=== PATIENT | male | born 1940 | race Caucasian/White ===

== ENCOUNTER 2023-04-25 17:29 | Emergency (ER) | payer MEDICARE, SELFPAY ==
[2023-04-25] VITALS (14 sets, daily range): BP systolic 128–166; BP diastolic 74–100; PULSE 98–122; RESP 12–19; TEMP 36.8; O2SAT 96–99
--- NOTE | 2023-04-25 17:30 | RT.EKG_ITS ---
APPROVED REPORT Exam: Resting ECG Reason for Exam: dizziness Patient Location: E HR:107 bpm ECG Measurements Heart Rate 107 AXIS DC 177 P 72 QRSd 83 QRS -6 QT 353 T 40 QTc 472 Conclusion Sinus tachycardia...rate> 99 Physician: no stemi
--- NOTE | 2023-04-25 17:45 | DI.CT_ITS ---
Exam(s) CT HEAD WO EXAM: CT HEAD WO CLINICAL HISTORY: dizzy, eval for stroke. TECHNIQUE: Imaging Protocol: Axial computed tomography images with coronal and sagittal reformatted images were created and reviewed COMPARISON: No exams were available for comparison FINDINGS: Ventricles and Extra axial spaces: Normal in size and morphology for the patient's age. Hemorrhage: None. Cerebral parenchyma: No evidence of acute infarct or mass. Mild atrophy consistent with the patient' s age. Minimal white matter changes small vessel disease. Midline shift: None. Brainstem/Cerebellum: Normal. Calvarium: Normal. Visualized Paranasal sinuses/Mastoids: Clear. Soft Tissues: Unremarkable. IMPRESSION: No acute intracranial process. RADIATION DOSE DELIVERED: 744.29mGy.cm Total DLP DATA REPOSITORY: All CT scans at this facility are submitted to the National Radiology Data Registry (NRDR) Dose Index Registry (DIR) with the [employer] ([employer]). RADIATION OPTIMIZATION: All CT scans at this facility use at least one of these dose optimization te chniques: automated exposure control; mA and/or kV adjustment per patient size (includes targeted exa ms where dose is matched to clinical indication); or iterative reconstruction.
[2023-04-25] MEDS: Meclizine 25 MG TAB PO (17:56)
--- NOTE | 2023-04-25 18:11 | ED.GENADUL_ITS ---
Discharge Plan Disposition Patient Disposition: Home Condition: Good Discharge Details Clinical Impression: Vertigo, peripheral Primary Care Provider: Cathi,Local ED Provider: Cristino Jean Home Meds and New Rx's Prescriptions: New meclizine 25 mg tablet 25 mg PO TID Qty: 30 0RF No Action fluvastatin [Lescol] 20 MG capsule 1 tab PO HS Patient Comments: not taking per pt cephalexin [Keflex] 500 MG capsule 500 mg PO TID Qty: 21 0RF Patient Comments: not taking per pt methylprednisolone 4 MG tablets,dose pack 4 mg PO DIRECTED Qty: 1 0RF Patient Comments: not taking per pt pravastatin 80 mg Tablet 80 mg DAILY Discharge Instructions Instructions: Vertigo (ED) Additional Instructions: At this time your workup shows no significant abnormalities. Your symptoms appear consistent with what is called peripheral vertigo. Please drink plenty fluids and stay well-hydrated. Please take the meclizine as directed to help with the dizziness. This prescription has been sent to your pharmacy. If you notice any worsening of your symptoms, or any new symptoms such as vomiting, diarrhea, fever, chills, shortness of breath, chest pain, numbness, weakness, or fainting , please return immediately to the emergency department for reevaluation. Please follow up with your primary care provider as soon as possible for reassessment and reevaluation. As always, it was a pleasure participating in your medical care today. Medical Decision Making 83-year-old male with a past medical history of high cholesterol and no other significant medical problems per report, presents today for evaluation of dizziness. Patient states that 2 to 3 days ago he gradually began getting dizzy. It was gradual in onset. He has chronic tinnitus and this is unchanged. Dizziness is described as a room spinning sensation from left to right. Made worse when he moves his head. Improved by closing his eyes and lying still. He denies any headache or vision changes. He denies any chest pain or shortness of breath. He denies any numbness tingling or weakness. He denies having had the symptoms before. He did drink a fair bit of water today and he states that this did help the symptoms improved. No other complaints at this time. No other modifying factors. Exam demonstrates dry mucous membranes, horizontal fatigable nystagmus. No vertical or rotatory nystagmus. Negative test of skew. Concern for peripheral vertigo however differential includes less likely cerebellar component. Will get a CT scan to rule out large stroke, rehydrate, give meclizine, monitor closely and reassess. EKG shows no evidence of STEMI or dysrhythmia. 7:23 PM Laboratory workup has returned normal, no white count bandemia or left shift. BUN is slightly high at 20, mucous membranes are dry, symptoms appear concerning and consistent with mild dehydration, as well as peripheral vertigo. CT scan negative for evidence of stroke. Symptoms appear clinically inconsistent at this time with cerebellar stroke. No ataxia or wide-based gait. Patient does have improvement of symptoms after fluid and meclizine. Patient will be discharged home with continue meclizine, recommendations for continued hydration, close follow-up. Prescription has been sent to the patient's pharmacy. No indication for ENT referral at this time. I did discuss with the patient that if he did not have improvement of symptoms over the next 3 for 5 days, then further ENT follow-up would be reasonable and indicated. I have extensively reviewed the treatment plan and discharge instructions with the patient and their family. I have addressed all patient concerns at this time. The patient and family was made aware of what symptoms to monitor for that would warrant a return to the emergency department. Discussed the plan with the patient and family, they demonstrate verbal understanding and agreement with our assessment and plan at this time. The documentation in this chart was dictated using [employer] dictation software. Please excuse any dictation errors. FINDINGS: Ventricles and Extra axial spaces: Normal in size and morphology for the patient's age. Hemorrhage: None. Cerebral parenchyma: No evidence of acute infarct or mass. Mild atrophy consistent with the patient's age. Minimal white matter changes small vessel disease. Midline shift: None. Brainstem/Cerebellum: Normal. Calvarium: Normal. Visualized Paranasal sinuses/Mastoids: Clear. Soft Tissues: Unremarkable. IMPRESSION: No acute intracranial process. HPI General Date/Time Provider Initiated Documentation: 04/25/23 17:37 . HPI Narrative: 83-year-old male with a past medical history of high cholesterol and no other significant medical problems per report, presents today for evaluation of dizziness. Patient states that 2 to 3 days ago he gradually began getting dizzy. It was gradual in onset. He has chronic tinnitus and this is unchanged. Dizziness is described as a room spinning sensation from left to right. Made worse when he moves his head. Improved by closing his eyes and lying still. He denies any headache or vision changes. He denies any chest pain or shortness of breath. He denies any numbness tingling or weakness. He denies having had the symptoms before. He did drink a fair bit of water today and he states that this did help the symptoms improved. No other complaints at this time. No other modifying factors. Related Data Home Medications Medication Instructions Recorded Confirmed cephalexin 500 mg capsule (Keflex) 500 mg PO TID ##21 05/18/16 fluvastatin 20 mg capsule (Lescol) 1 tab PO HS 05/18/16 05/18/16 methylprednisolone 4 mg tablets in 4 mg PO DIRECTED #1 packet 05/18/16 a dose pack meclizine 25 mg tablet 25 mg PO TID #30 tabs 04/25/23 pravastatin 80 mg tablet 80 mg DAILY 04/25/23 04/25/23 Previous Rx's Medication Instructions Recorded cephalexin 500 mg capsule (Keflex) 500 mg PO TID ##21 05/18/16 methylprednisolone 4 mg tablets in 4 mg PO DIRECTED #1 packet 05/18/16 a dose pack meclizine 25 mg tablet 25 mg PO TID #30 tabs 04/25/23 Allergies Allergy/AdvReac Type Severity Reaction Status Date / Time No Known Allergies Allergy Unverified 04/25/23 17:37 General Stated Complaint: Dizzy/Sync ALLYSON: 3 Review of Systems All systems reviewed & are unremarkable except as noted in HPI and below PFSH All Active Problems (Updated 04/25/23 @ 19:06 by Cristino Jean DO) Vertigo, peripheral (Acute) Social History Smoking/Tobacco Use Status: Former Tobacco Use Smoking risk assessment performed?: Yes Alcohol Intake: current Alcohol Intake frequency: holidays/special occasions only Alcohol type: beer Drug use: Never Housing: house Do you feel safe at home: Yes Do you feel safe in your relationship?: Yes Additional Social history: lives in [place] but stay in a camper when in [place] Exam Narrative Exam Narrative: 1.Const: Well-nourished, Well-developed, appearing stated age 2.Eyes: PERRL, no conjunctival injection, and symmetrical lids. Horizontal bidirectional fatigable nystagmus is noted. No rotatory or vertical nystagmus. 3.ENT: Atraumatic external nose and ears. Dry MM. Neck: Symmetric, trachea midline, No thyromegaly. 4.CVS: +S1/S2, No murmurs or gallops. Peripheral pulses 2+ and equal in all extremities. Brisk capillary refill in all extremities. 5.RESP: Unlabored respiratory effort. Clear to auscultation bilaterally. No wheezes rales or rhonchi 6.GI: Soft, Nontender/Nondistended, No hepatosplenomegaly. No guarding or rebound. 7.MSK: Normocephalic/Atraumatic, Extremities w/o deformity or ttp No cyanosis or clubbing, Normal movement of all extremities 8.Skin: Warm, Dry. No rashes or lesions. 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 Sensation grossly intact, no focal neurologic deficits. All 6 cardinal planes of vision are fully intact. No evidence of rotatory or vertical nystagmus. The patient demonstrated a normal [id number]-nvhm-[id number], good dexterity. There was no evidence of dysdiadochokinesia. Patient was able to ambulate without difficulty. There was no wide-based gait. Romberg testing was normal. Lxal-oc-nmbr testing was normal. Sensation was i ntact bilaterally as well as muscle strength bilaterally for all extremities. Patient was able to verbalize butter cup with no slurring, or miss pronunciation. Head impulse test only slightly worsens the symptoms. Test of skew negative 10.Psych: (AAO) x3. Appropriate mood and affect Course Vital Signs Vital signs: Vital Signs Temperature 36.8 C 04/25/23 17:36 Pulse 122 H 04/25/23 17:36 Respiratory Rate 18 04/25/23 17:36 Blood Pressure 128/86 04/25/23 17:36 Pulse Oximetry 99 04/25/23 17:36 Temperature 36.8 C 04/25/23 17:36 Pulse 104 H 04/25/23 17:55 Respiratory Rate 14 04/25/23 17:55 Respiratory Effort Normal 04/25/23 17:51 Respiratory Depth Normal 04/25/23 17:48 Respiratory Pattern Normal 04/25/23 17:48 Blood Pressure 166/100 H 04/25/23 17:55 Pulse Oximetry 98 04/25/23 17:55 Oxygen Delivery Method Room Air 04/25/23 17:55 Oxygen Flow Rate 0 04/25/23 17:55 Pain Level 0 04/25/23 17:36
[2023-04-25 18:18] LABS: Abs Immature Grans 0.04 10^3/uL (0.0-0.06); Absolute Basophil Count 0.02 10^3/uL (0.0-0.2); Absolute Eosinophil Count 0.01 10^3/uL (0.0-0.7); Absolute Lymphocyte Count 1.13 10^3/uL (1.2-3.4); Absolute Monocyte Count 0.46 10^3/uL (0.1-0.8); Absolute Neutrophil Count 8.21 10^3/uL (1.2-6.7); Basophils % 0.2; Eosinophils % 0.1; HCT 46.3 % (40.0-50.0); HGB 15.4 g/dL (13.5-17.5); Immature Grans % 0.4; Lymphocytes % 11.4; MCH 28.2 pg (27.0-33.0); MCHC 33.3 % (32.0-36.0); MCV 85 fL (80-95); MPV 8.9 fL (8.0-11.0); Monocytes % 4.7; Neutrophils % 83.2; Platelet Count 204 10^3/uL (130-400); RBC 5.47 10^6/uL (4.36-5.78); RDW 12.6 % (11.8-14.1); RDW-SD 38.9 fL; WBC 9.87 10^3/uL (4.4-10.8)
[2023-04-25] MEDS: Normal Saline 500 ML IV (18:18)
[2023-04-25 18:33] LABS: INR 1.1 (0.9-1.1); PTT Activated 26.4 sec (21.5-31.9); Prothrombin Time 10.9 sec (9.3-11.0)
[2023-04-25 18:35] LABS: ALT 25 U/L (16-63); AST 20 U/L (15-37); Albumin 3.6 g/dL (3.4-5.0); Alkaline Phosphatase 65 U/L (46-116); Anion Gap 10.4 mmol/L (3-11); BUN 20 mg/dL (7-18); Bilirubin, Total 0.5 mg/dL (0.2-1.0); CO2 26.6 mmol/L (21.0-32.0); CREATININE 1.3 mg/dL (0.70-1.30); Chloride 100 mmol/L (98-107); Estimated GFR 54.85 (mL/min/1.73m2); Glucose 190 mg/dL (74-106); Magnesium 1.9 mg/dL (1.8-2.4); Potassium 4.3 mmol/L (3.5-5.1); Sodium 137 mmol/L (136-145); Troponin I < 50 ng/L (<or=60)
--- NOTE | 2023-04-25 19:04 | NUR.NOTE ---
This RN received report by Cherrie LIM, assumed care at this time, introduced self to pt, no needs verbalized at this time.
== END 2023-04-25 21:20 | disposition home or self-care (01) ==
PROVIDERS: Emergency Provider Student in an Organized Health Care Education/Training Program
DX: H81.399 Other peripheral vertigo, unspecified ear (principal)
CPT/HCPCS: 80053; 93005; 99284; 70450; 83735; 84484; 85025; 85610; 85730; 93010; 99283